=== PATIENT | male | born 1980 | race Caucasian/White ===

== ENCOUNTER → 2019-02-14 | Outpatient (CLI) | payer BC ==
[~2019-02-14] MED LIST: ADVIL200 M1 PO; NEXIUM40 MG PO
== END ==
LOC: RAD 05:00 → EDSTATUS 02-18 08:00
PROVIDERS: ATTEND Specialist
DX: Z01.818 Encounter for other preprocedural examination (principal); S83.241A Other tear of medial meniscus, current injury, right knee, initial encounter
CPT/HCPCS: 93005